=== PATIENT | female | born 1955 | race Caucasian/White ===

== ENCOUNTER 2017-09-25 21:51 | Emergency (ER) | payer BC ==
[~2017-09-25] VITALS: Ht 152.4 cm; Wt 87.1 kg
[~2017-09-25 21:51] MED LIST: ARMOUR THYROID90 M1 PO; ASPIR 8181 MG PO; ASPIRIN EC81 M1 PO; BENICAR20 MG PO; BENTYL10 MG PO; CIPRO250 M1; CLONIDINE HCL0.2 M2 PO; COZAAR 50 MG TA50 M2 PO; COZAAR 50 MG TA50 MG PO; GLUCOPHAGE500 MG PO; HYDROCODON-ACE1 EAC7; HYDROCODONE-AP1 EAC6 PO; LEXAPRO20 MG PO; MECLIZINE HCL25 M1 PO; PAXIL10 MG; POTASSIUM CIT-473 ML PO; SIMVASTATIN40 MG PO; SYNTHROID88 MCG PO
[2017-09-25 22:20] LABS: ABSOLUTE EOSINOPHILS 0.1 thou/uL (0.0-0.7); ABSOLUTE LYMPHOCYTES 1.7 thou/uL (0.8-5.3); ABSOLUTE MONOCYTES 0.6 thou/uL (0.0-1.2); BASOPHILS 0.4 %; HEMATOCRIT 41.3 % (37.0-47.0); HEMOGLOBIN 13.9 gm/dL (12.0-15.0); LYMPHOCYTES 20.3 %; MCH 30.7 pg (26.0-34.0); MCHC 33.7 g/dL (28.0-37.0); MCV 91.1 fL (80.0-100.0); MONOCYTES 7.1 %; MPV 8.6 fl. (7.2-11.1); NUCLEATED RBCS 0 /100WBC; PLATELET COUNT* 231 thou/uL (150-400); POLYS 71.2 %; RBC 4.54 mil/uL (4.20-5.00); RDW-CV 13.3 % (10.5-14.5); WBC 8.4 thou/uL (4.0-11.0)
[2017-09-25 22:20] LABS: URINE BILIRUBIN NEGATIVE (Negative); URINE BLOOD TRACE (Negative); URINE CLARITY CLEAR; URINE COLOR YELLOW; URINE GLUCOSE-RANDOM NEGATIVE (Negative); URINE KETONES NEGATIVE (Negative); URINE LEUKOCYTES-REFLEX NEGATIVE (Negative); URINE NITRITE-REFLEX NEGATIVE (Negative); URINE PROTEIN NEGATIVE (Negative); URINE SPECIFIC GRAVITY >= 1.030 (1.005-1.030); URINE UROBILINOGEN 0.2 E.U./dl (0.2-1.0)
[2017-09-25 22:25] LABS: CALCIUM 9.2 mg/dL (8.5-10.1); CREATININE 1.5 mg/dL (0.6-1.3); POTASSIUM 3.7 mmol/L (3.5-5.1)
[2017-09-25 22:29] LABS: ALBUMIN 3.8 g/dL (3.4-5.0); TOTAL BILIRUBIN 0.4 mg/dL (<0.1-1.0); TOTAL PROTEIN 8.2 g/dL (6.4-8.2)
[2017-09-25] MEDS ORDERED: PROMETHAZINE12.5 M1 PO (23:49)
[2017-09-25] MEDS ORDERED: NORCO 5-325 TA1 EACH PO (23:49)
[2017-09-26 00:04] VITALS: BP 135/70
[2017-09-28] MEDS ORDERED: ARMOUR THYROID60 M1 PO (09:00)
[2017-09-28] MEDS ORDERED: VIRTRATE-K ORA473 ML PO (09:00)
[2017-09-30] MEDS ORDERED: NORCO 5-325 TA1 EACH PO (11:18)
== END 2017-09-26 00:05 | disposition home or self-care (01) ==
LOC: M.ERS 21:51
PROVIDERS: Nurse Practitioner Family
DX: N20.1 Calculus of ureter (principal); R11.2 Nausea with vomiting, unspecified; E78.00 Pure hypercholesterolemia, unspecified; E03.9 Hypothyroidism, unspecified; E11.9 Type 2 diabetes mellitus without complications; I10 Essential (primary) hypertension; F32.9 Major depressive disorder, single episode, unspecified; Z88.7 Allergy status to serum and vaccine; Z88.8 Allergy status to other drugs, medicaments and biological substances; Z85.528 Personal history of other malignant neoplasm of kidney

== ENCOUNTER → 2017-09-30 | Day surgery (SDC) | payer BC ==
[~2017-09-30] MED LIST changes: +ARMOUR THYROID60 M1 PO; +NORCO 5-325 TA1 EACH PO; +PROMETHAZINE12.5 M1 PO; +VIRTRATE-K ORA473 ML PO
[2017-09-30 08:45] LABS: CALCIUM 9.2 mg/dL (8.5-10.1); CREATININE 1.1 mg/dL (0.6-1.3); POTASSIUM 3.9 mmol/L (3.5-5.1)
[2017-09-30 08:58] LABS: ALBUMIN 3.6 g/dL (3.4-5.0); TOTAL BILIRUBIN 0.3 mg/dL (<0.1-1.0); TOTAL PROTEIN 7.7 g/dL (6.4-8.2)
--- NOTE | 2017-09-30 15:15 | EKG ---
[place] [address] ELECTROCARDIOGRAM REPORT Name: CITLALY PIEDRA Room: [facility]#: [id number] Admission: 09/30/17 Attend Phys: Erwin Gagnon MD Discharge: Date of : 57 Report #: [id number] THIS REPORT FOR: //name// [facility] Test Date: 2017-09-30 Test Time: 08:45:23 Pat Name: CITLALY PIEDRA Department: Room: Gender: F Senior Service Aide: : 1955 Requested By: Erwin Gagnon Order Number: [id number] MD: Erwin Rodriguez Measurements Intervals [place] Rate: 49 P: 26 NE: 162 QRS: -21 QRSD: 83 T: 51 QT: 477 QTc: 431 Interpretive Statements Sinus bradycardia Left ventricular hypertrophy Compared to ECG 05/17/2014 03:55:49 No significant changes Electronically Signed On 09-30-2017 15:15:22 CDT by Erwin Rodriguez [email or web address] <ELECTRONICALLY SIGNED> By: Erwin Rodriguez MD, [facility] 09/30/17 1515 0845 0845 Erwin Rodriguez MD, FACC /EPI
--- NOTE | 2017-11-05 12:08 | OP ---
[address] [address] OPERATIVE REPORT Name: CITLALY PIEDRA Room: [facility]#: [id number] Admission: 09/30/17 Attend Phys: Erwin Gagnon MD Discharge: Date of : 57 Report #: [id number] THIS REPORT FOR: //name// CC: Erwin Kwan DATE OF SERVICE: 09/30/2017 INDICATION FOR PROCEDURE: The patient is a 62-year-old female who is a patient of Dr. Timo Thomas'fredi with a known kidney stones. He recently saw her in the office following an ER visit diagnosing a 7-mm left ureteropelvic junction calculus. She also has bilateral renal stones. She presents today for a left ureteroscopic stone extraction with holmium laser lithotripsy. PREOPERATIVE DIAGNOSIS: Left ureteral and renal calculi. POSTOPERATIVE DIAGNOSIS: Left ureteral and renal calculi. PROCEDURE: Cystoscopy, left retrograde pyelogram, left ureteroscopic stone extraction using holmium laser lithotripsy, left double-J stent placement. SURGEON: Erwin Gagnon M.D. ANESTHESIA: General. COMPLICATIONS: None. ESTIMATED BLOOD LOSS: Minimal. DESCRIPTION OF PROCEDURE: The patient was consented for the above procedure. She was given broad spectrum IV antibiotics preoperatively. She was given general anesthetic, placed in the dorsal lithotomy position. She was prepped and draped in a usual sterile fashion over the genitalia. Stones were poorly visualized on fluoroscopy. Cystoscopy was performed with a 21-Canadian sheath and 30-degree lens, which revealed no evidence of stones, ulcerations or tumors within the bladder itself. A left retrograde pyelogram was performed, which revealed a filling defect at the UPJ as well as in the middle and lower pole calices of the kidney. Based on that, a 0.035 floppy-tipped guidewire was passed up the left ureter under fluoroscopic guidance without difficulty. Next, the cystoscope was removed. The 11/ Canadian 28-cm ureteral access sheath was passed over the wire under fluoroscopic guidance up the mid ureter without difficulty. Next, the wire and trocar were removed leaving the sheath in place. The flexible ureteroscope was used to perform ureteroscopy without difficulty. This UPJ stone was pushed back into a middle pole oscar and then fragmented into a passable size pieces. She had multiple stones. She had a large renal pelvic stone and minimal on lower pole calices. These stones [place] [address] OPERATIVE REPORT Name: CITLALY PIEDRA Room: [facility]#: [id number] Admission: 09/30/17 Attend Phys: Erwin Gagnon MD Discharge: Date of : 57 Report #: [id number] difficult to fragment with the laser as they were hard to trap, but to the best of my ability I trapped the middle pole calyceal stones in the middle pole oscar and fragmented them into passable size pieces and then the same with the lower pole stones. There were some angle issues, I am not completely convinced that the lower pole stones were completely fragmented into passable size pieces, but everything that I could get to was fragmented. After breaking up everything that I could get access to, I elected to halt the procedure. The ureteroscope was removed. The wire was replaced under fluoroscopic guidance. The access sheath was then removed and a 4.8 x 26 double-J stent was passed over the wire with good curl noted in the renal pelvis and the bladder. This was confirmed with fluoroscopy and cystoscopy. The bladder was drained. The scope was removed. Uro-Jet was placed per urethra for local anesthesia. I will have the patient follow up with Dr. Thomas in a week for imaging to see if further stone therapy is necessary or stent removal is possible. Certainly, ESWL of the lower pole of the kidney with contrast would be a consideration as well because I pushed most fragments down into the lower pole of the kidney. <ELECTRONICALLY SIGNED> By: Erwin Gagnon MD 11/05/17 1208 1054 [id number] Gagnon MD /nt
== END | disposition home or self-care (01) ==
LOC: M.SUR 07:15
PROVIDERS: Urology
DX: N20.2 Calculus of kidney with calculus of ureter (principal); Z98.890 Other specified postprocedural states; Z79.899 Other long term (current) drug therapy; Z88.8 Allergy status to other drugs, medicaments and biological substances; Z79.891 Long term (current) use of opiate analgesic

== ENCOUNTER 2019-12-27 10:38 | Inpatient (IN) | payer BC ==
[~2019-12-27] VITALS: Ht 152.4 cm; Wt 89.4 kg
[2019-12-27 10:41] VITALS: BP 103/75
[2019-12-27] MEDS ORDERED: METFORMIN HCL500 M3 PO (10:45)
[2019-12-27 11:12] LABS: ABSOLUTE LYMPHOCYTES 0.7 thou/uL (0.8-5.3); ABSOLUTE MONOCYTES 0.6 thou/uL (0.0-1.2); ABSOLUTE NEUTROPHILS 6.5 thou/uL (1.6-8.1); BASOPHILS 0.3 %; EOSINOPHILS 0.5 %; HEMOGLOBIN 12.9 gm/dL (12.0-15.0); MCH 29.8 pg (26.0-34.0); MCHC 33.8 g/dL (28.0-37.0); MCV 88.2 fL (80.0-100.0); MONOCYTES 7.8 %; MPV 8.6 fl. (7.2-11.1); NUCLEATED RBCS 0 /100WBC; PLATELET COUNT* 236 thou/uL (150-400); POLYS 82.4 %; RBC 4.31 mil/uL (4.20-5.00); WBC 7.9 thou/uL (4.0-11.0)
[2019-12-27 11:22] LABS: CALCIUM 8.8 mg/dL (8.5-10.1); CREATININE 1.5 mg/dL (0.6-1.3); POTASSIUM 3.4 mmol/L (3.5-5.1)
[2019-12-27 11:26] LABS: APTT 26.2 Seconds (25.0-31.3); PROTIME 10.9 Seconds (9.20-11.50)
[2019-12-27 11:33] LABS: ALBUMIN 3.1 g/dL (3.4-5.0); TOTAL BILIRUBIN 0.7 mg/dL (<0.1-1.0); TOTAL PROTEIN 8.3 g/dL (6.4-8.2)
--- NOTE | 2019-12-27 11:51 | NUR ---
IV ACCESS ATTEMPTED 2, WITHOUT SUCCESS. PHYSICIAN TOLD, AND STATED IT WAS NOT NEEDED.
[2019-12-27] MEDS ORDERED: ZPAK PO (12:27)
[2019-12-27] MEDS ORDERED: PREDNISONE 20 M20 M1 PO (12:27)
[2019-12-27] MEDS ORDERED: ZOFRAN ODT4 MG SUBLING (12:27)
[2019-12-27 17:00] VITALS: BP 155/59
[2019-12-27 20:30] VITALS: BP 115/49
[2019-12-28] VITALS: BP 108/54
[2019-12-28 05:56] LABS: HEMATOCRIT 35.1 % (37.0-47.0); HEMOGLOBIN 11.6 gm/dL (12.0-15.0); MCH 29.6 pg (26.0-34.0); MCHC 33.1 g/dL (28.0-37.0); MCV 89.5 fL (80.0-100.0); MPV 8.8 fl. (7.2-11.1); RBC 3.92 mil/uL (4.20-5.00); WBC 4.1 thou/uL (4.0-11.0)
[2019-12-28 06:14] LABS: ALBUMIN 2.5 g/dL (3.4-5.0); CREATININE 1.1 mg/dL (0.6-1.3); MAGNESIUM 2.5 mg/dL (1.8-2.4); POTASSIUM 3.8 mmol/L (3.5-5.1); TOTAL BILIRUBIN 0.3 mg/dL (<0.1-1.0); TOTAL PROTEIN 7.3 g/dL (6.4-8.2)
[2019-12-28 08:00] VITALS: BP 125/60
--- NOTE | 2019-12-28 08:37 | NUR ---
RECEIVED PT FROM ED AT APPROX 2000. PT IS AWAKE AND ORIENTED X4. PT IS NOT IN DISTRESS. ORACLE SOA CONSULTANT IS TRACING SB/SR. PT DENIES PAIN. ADMISSION ASSESSMENT DONE AND CHARTED. NO ACUTE CHANGES THIS SHIFT. CALL LIGHT WITHIN REACH. HOURLY ROUNDING DONE FOR PT SAFETY.
--- NOTE | 2019-12-28 10:57 | EKG ---
[place] [address] ELECTROCARDIOGRAM REPORT Name: CITLALY PIEDRA Room: [address] ADM IN .R.#: [id number] Admission: 12/27/19 Attend Phys: Dorys Sue, Discharge: Date of : 57 Date of Service: 12/27/19 1131 Report #: [id number] THIS REPORT FOR: //name// [facility] ED Test Date: 2019-12-27 Test Time: 11:31:07 Pat Name: CITLALY PIEDRA Department: Room: [facility] Gender: F Clinical Data Abstractor: CCD : 1955 Requested By: Osmani Eaton Order Number: [id number] MD: Erwin Rodriguez Measurements Intervals [place] Rate: 63 P: 15 VT: 142 QRS: -18 QRSD: 76 T: 11 QT: 522 QTc: 535 Interpretive Statements Sinus rhythm Left ventricular hypertrophy Prolonged QT interval Compared to ECG 09/30/2017 08:45:23 Prolonged QT interval now present Sinus bradycardia no longer present Electronically Signed On 12-28-2019 10:57:26 ENTOMOLOGY TEACHER by Erwin Rodriguez [email or web address] <ELECTRONICALLY SIGNED> By: Erwin Rodriguez MD, [facility] 12/28/19 1057 1131 1131 Erwin Rodriguez MD, [facility] /EPI
--- NOTE | 2019-12-28 11:22 | NUR ---
RECIEVED REPORT AROUND 0730. ASSUMED CARE. PT LYING IN BED. IV INTACT LEFT WRIST. HEART MONITOR ATTACHED. VS AND ASSESSMENT CHARTED. PT UP STAND BY ASSIST. NO PAIN THIS AM. MEDS PER MAR GIVEN THIS AM. CALL LIGHT WITHIN REACH. WILL CONTINUE TO MONITOR.
--- NOTE | 2019-12-28 12:57 | NUR ---
CM COMPLETED THE INITIAL ASSESSMENT TO DISCUSS D/C PLANNING. PT IS A&O. ACTIVE AND INDEPENDENT W/ADLS. PT IS AN OR NURSE, AND WORKED HH RN IN THE PAST. PT DENIES HX W/HH OR SNF. PT HAS 0 DMES. PT LIVES HOME W/. HAS FOUR CHILDRENA AND GOOD SUPPORT. PT STATED HER SPOUSE IS COVID POSITIVE, "BUT HE IS DOING BETTER THAN ME." INDICIATING HE DID NOT HAVE TO BE HOSPITALIZED. CM TO CONT TO FOLLOW, NO ANTICIPATED NEEDS AT THIS TIME.
[2019-12-28 13:33] VITALS: BP 131/68
--- NOTE | 2019-12-28 15:48 | NUR ---
RIGHT BASILIC VESSEL ACCESSED FOR 4 LITHUANIAN SINGLE LUMEN PICC. LINE PRE-TRIMMED TO 38CM AND ADVANCED TO THE ZERO JOSE J WITH NO RESISTANCE MET. UPPER ARM CIRCUMFERENCE ABOVE INSERTION SITE= 13". SHERLOCK MAGNET AND 3CG CONFIRMATION OF TIOP TERMINATION AT THE CAVOATRIAL JUNCTION APPRECIATED. GUIDEWIRE REMOVED, LINE FLUSHED AND INSERTION SITE DRESSED. REPORT GIVEN TO ANISA RAMIREZ.
[2019-12-28 17:39] VITALS: BP 138/70
--- NOTE | 2019-12-28 18:07 | NUR ---
PT UP IN CHAIR. MEDS PER APR. HOURLY ROUNDING PERFORMED. PICC INSERTED THIS SHIFT UPPER RIGHT ARM. SINGLE LUMEN. IV LEFT WRIST INTACT. HEART MONITOR ATTACHED. NO REPORTS OF PAIN THIS SHIFT. CALL LIGHT WITHIN REACH. WILL CONTINUE TO MONITOR.
[2019-12-28 20:00] VITALS: BP 119/51
[2019-12-28 23:53] VITALS: BP 128/56
[2019-12-29 04:18] VITALS: BP 139/63
--- NOTE | 2019-12-29 05:09 | NUR ---
ASSUMED PT CARE AT APPROX 1930. PT IS AWAKE AND ORIENTED X4. PT IS TRACING SR/SB ON THE LANDSCAPE CREW MEMBER. PT DENIES PAIN/DISCOMFORT. spO2 IS 88-90 ON 2L OF O2, INCREASED O2 SUPPORT TO 4L, spO2:92-93% ON 4L.PT IS SHORT OF BREATH WITH ACTIVITY. PT IS MONITORED. CALL LIGHT WITHIN REACH. HOURLY ROUNDING DONE FOR PT SAFETY.
[2019-12-29 05:12] LABS: MCH 29.6 pg (26.0-34.0); MCHC 33.3 g/dL (28.0-37.0); MCV 88.8 fL (80.0-100.0); RBC 3.72 mil/uL (4.20-5.00); RDW-CV 12.9 % (10.5-14.5); WBC 9.8 thou/uL (4.0-11.0)
[2019-12-29 05:39] LABS: ALBUMIN 2.5 g/dL (3.4-5.0); CALCIUM 8.6 mg/dL (8.5-10.1); MAGNESIUM 2.3 mg/dL (1.8-2.4); POTASSIUM 3.7 mmol/L (3.5-5.1); TOTAL BILIRUBIN 0.3 mg/dL (<0.1-1.0); TOTAL PROTEIN 6.8 g/dL (6.4-8.2)
[2019-12-29 08:00] VITALS: BP 135/63
--- NOTE | 2019-12-29 10:09 | NUR ---
RECIEVED REPORT AROUND 0715. ASSUMED CARE. VS AND ASSESSMENT CHARTED. PT LYING IN BED DURING ASSESSMENT. PT UP IN CHAIR CURRENTLY. HEART MONITOR ATTACHED AT SB. MEDS GIVEN PER APR. PT ON 4L NC. IV'S INTACT. CALL LIGHT WITHIN REACH. WILL CONTINUE TO MONITOR.
[2019-12-29 16:00] VITALS: BP 134/61
--- NOTE | 2019-12-29 18:29 | NUR ---
NO NEW CHANGES. IV INTACT UPPER ARM. LEFT WRIST IV TAKEN OUT. PT STATED "IT STINGS" WHEN FLUSHED. PT LYING IN BED. UA NOT COLLECTED THIS SHIFT DUE TO PT NOT BEING ABLE TO MAKE IT TO THE BATHROOM IN TIME. MEDS GIVEN PER MAR. HOURLY ROUNDING PERFORMED. HEART MONITOR ATTACHED. CALL LIGHT WIHTIN REACH. WILL CONTINUE TO MONITOR.
[2019-12-29 20:00] VITALS: BP 145/52
[2019-12-29 21:05] LABS: URINE BILIRUBIN NEGATIVE (Negative); URINE BLOOD TRACE (Negative); URINE CLARITY CLEAR; URINE COLOR YELLOW; URINE GLUCOSE-RANDOM NEGATIVE (Negative); URINE KETONES NEGATIVE (Negative); URINE LEUKOCYTES-REFLEX NEGATIVE (Negative); URINE NITRITE-REFLEX NEGATIVE (Negative); URINE PROTEIN NEGATIVE (Negative); URINE UROBILINOGEN 0.2 E.U./dl (0.2-1.0)
[2019-12-30] VITALS: BP 128/53
[2019-12-30 04:00] VITALS: BP 123/49
[2019-12-30 07:07] LABS: HEMATOCRIT 31.3 % (37.0-47.0); HEMOGLOBIN 10.5 gm/dL (12.0-15.0); MCH 29.8 pg (26.0-34.0); MCHC 33.6 g/dL (28.0-37.0); MCV 88.5 fL (80.0-100.0); MPV 8.7 fl. (7.2-11.1); RBC 3.54 mil/uL (4.20-5.00); RDW-CV 12.8 % (10.5-14.5); WBC 8.7 thou/uL (4.0-11.0)
[2019-12-30 07:53] LABS: ALBUMIN 2.6 g/dL (3.4-5.0); CALCIUM 8.7 mg/dL (8.5-10.1); CREATININE 0.9 mg/dL (0.6-1.3); MAGNESIUM 2.2 mg/dL (1.8-2.4); POTASSIUM 3.7 mmol/L (3.5-5.1); TOTAL BILIRUBIN 0.3 mg/dL (<0.1-1.0); TOTAL PROTEIN 6.6 g/dL (6.4-8.2)
--- NOTE | 2019-12-30 07:55 | NUR ---
ASSUMED PT CARE AT APPROX 1930. PT IS AWAKE AND ORIENTED X4. PT IS NOT IN DISTRESS. PT IS SB ON THE MONITOR BUT IS ASYMPTOMATIC. PT DENIES PAIN. STATED SHE'S ABLE TO TASTE FOOD AGAIN AND SENSE OF SMELL IS STARTING TO COME BACK. O2 SUPPORT DECREASED TO 2L THIS SHIFT, spO2 REMAINED BETWEEN 94-97%.
[2019-12-30 08:00] VITALS: BP 113/62
--- NOTE | 2019-12-30 09:27 | NUR ---
RECIEVED REPORT AROUND. 0715. ASSUMED CARE. VS AND ASSESSMENT CHARTED. PT LYING IN BED THIS AM. UP TO BATHRROM. IV INTACT. PICC UPPER ARM. HEART MONITOR ATTACHED AT SB. MEDS GIVEN THIS AM PER APR. 2L NC. NO REPORTS OF PAIN THIS AM. CALL LIGHT WITHIN REACH. WILL CONTINUE TO MONITOR.
[2019-12-30 12:00] VITALS: BP 141/88
[2019-12-30 16:00] VITALS: BP 148/55
--- NOTE | 2019-12-30 18:21 | NUR ---
NO NEW CHANGES. PT LYING IN BED. IV INTACT. PICC. HEART MONITOR ATTACHED SB. MEDS PER APR. HOURLY ROUNDING PERFORMED. NO REPORTS OF PAIN THIS SHIFT. CALL LIGHT WITHIN REACH. WILL CONTINUE TO MONITOR
[2019-12-30 21:30] VITALS: BP 134/56
[2019-12-31 00:50] VITALS: BP 136/52
--- NOTE | 2019-12-31 04:14 | NUR ---
ASSUMED CARE OF PT AT 1900. PT IS ALERT AND ORIENTED. VSS.PERRLA. NO COMPLAINTS OF PAIN. PT IS IN SINUS RYTHM ON THE TELEMETRY. PT IS RESTING COMFORTABLY IN BED. WILL CONTINUE TO MONITOR PT.
[2019-12-31 05:07] VITALS: BP 138/41
[2019-12-31 06:40] LABS: HEMATOCRIT 32.5 % (37.0-47.0); MCHC 33.8 g/dL (28.0-37.0); MCV 88.9 fL (80.0-100.0); MPV 8.5 fl. (7.2-11.1); RBC 3.65 mil/uL (4.20-5.00); RDW-CV 12.9 % (10.5-14.5); WBC 7.9 thou/uL (4.0-11.0)
[2019-12-31 07:07] LABS: ALBUMIN 2.6 g/dL (3.4-5.0); CALCIUM 8.4 mg/dL (8.5-10.1); CREATININE 0.9 mg/dL (0.6-1.3); MAGNESIUM 1.9 mg/dL (1.8-2.4); POTASSIUM 3.6 mmol/L (3.5-5.1); TOTAL BILIRUBIN 0.3 mg/dL (<0.1-1.0); TOTAL PROTEIN 6.5 g/dL (6.4-8.2)
[2019-12-31 08:10] VITALS: BP 145/70
[2019-12-31 12:00] VITALS: BP 142/58
--- NOTE | 2019-12-31 15:00 | NUR ---
CXR-NO CHANGE. O2 REQUIREMENTS DOWN TO 2L/NC. REMAINS ON IV AB X2 AND DEXAMETHASON. UP WITH ASSIT WITH WALKER. CONTINUES TO PLAN TO GO HOME AT DISCHARGE WITH HH IF NEEDED. CM WILL FOLLOW.
[2019-12-31 15:51] VITALS: BP 126/58
--- NOTE | 2019-12-31 18:15 | NUR ---
Pt remained A&O for the entire shift. Vital signs remained stable. Pt denies any pain. Respirations are even and unlabored. Pt remains on 2L O2. Pt Sinus Eligio on tele monitor. PICC line intact and working effectively. Pt up ad eri. Call light within reach. Will continue to monitor.
[2019-12-31 19:30] VITALS: BP 130/73
[2020-01-01] VITALS: BP 157/60
--- NOTE | 2020-01-01 02:44 | NUR ---
ASSUMED CARE OF PT AT 1900. PT IS ALERT AND ORIENTED. VSS. PERRLA. NO COMPLAINTS OF PAIN. PT IS IN SINUS RYTHM ON THE TELEMETRY. PT IS RESTING COMFORTABLY IN BED. RESPIRATIONS ARE EVEN AND NONLABORED. WILL CONTINUE TO MONITOR PT.
[2020-01-01 04:00] VITALS: BP 147/61
[2020-01-01 07:50] VITALS: BP 152/71
[2020-01-01] MEDS ORDERED: CEFDINIR300 MG PO (09:31)
[2020-01-01] MEDS ORDERED: DEXAMETHASONE1 MG PO (09:31)
[2020-01-01 09:34] VITALS: BP 152/71
--- NOTE | 2020-01-01 11:40 | NUR ---
PATIENT RECIEVED ORDERED ABX. PICC LINE DC'D FOR DISCHARGE. UP AD AFIA WITHOUT DIFFCULTY. RA SAT 93%, NO SOA NOTED. PATIENT VERBALIZES UNDERSTANDING OF PAPERWORK AND SCRIPTS SENT TO PREFFERED PHARMACY. PATIENT TAKEN OUT VIA WHEELCHAIR WITH ALL BELONGINGS.
== END 2020-01-01 11:30 | disposition home or self-care (01) | DRG 177 ==
LOC: M.ERS 10:38 → M.ORTHSURG 12:52 → M.TBA-ER 12:52 → M.ORTHSURG 22:15
PROVIDERS: Family Medicine; ADMIT Internal Medicine; ATTEND Internal Medicine
PROC: XW033E5 Introduction of Remdesivir Anti-infective into Peripheral Vein, Percutaneous Approach, New Technology Group 5 (ICD-10-PCS; principal; 2019-12-27)
PROC: B548ZZA Ultrasonography of Superior Vena Cava, Guidance (ICD-10-PCS; 2019-12-28)
PROC: 02HV33Z Insertion of Infusion Device into Superior Vena Cava, Percutaneous Approach (ICD-10-PCS; 2019-12-28)
DX: U07.1 COVID-19 (principal); J12.89 Other viral pneumonia; J96.01 Acute respiratory failure with hypoxia; N17.0 Acute kidney failure with tubular necrosis; F32.9 Major depressive disorder, single episode, unspecified; E78.5 Hyperlipidemia, unspecified; E03.9 Hypothyroidism, unspecified; I10 Essential (primary) hypertension; E11.9 Type 2 diabetes mellitus without complications; E78.00 Pure hypercholesterolemia, unspecified; Z85.528 Personal history of other malignant neoplasm of kidney; Z90.49 Acquired absence of other specified parts of digestive tract; Z79.84 Long term (current) use of oral hypoglycemic drugs; Z79.899 Other long term (current) drug therapy; Z88.8 Allergy status to other drugs, medicaments and biological substances; Z88.7 Allergy status to serum and vaccine

== ENCOUNTER → 2020-10-17 | Outpatient (CLI) | payer BC ==
[~2020-10-17] MED LIST changes: +CEFDINIR300 MG PO; +DEXAMETHASONE1 MG PO; +METFORMIN HCL500 M3 PO; +PREDNISONE 20 M20 M1 PO; +ZOFRAN ODT4 MG SUBLING; +ZPAK PO
== END ==
LOC: M.ULTRA 15:00
PROVIDERS: ATTEND Family Medicine
DX: M79.89 Other specified soft tissue disorders (principal)

== ENCOUNTER → 2021-01-21 | Outpatient (CLI) | payer BC ==
--- NOTE | 2021-01-21 14:04 | 2DMMODE ---
[place] [address] 2 D/M-MODE ECHOCARDIOGRAM Name: CITLALY PIEDRA Room: [facility]#: [id number] Admission: 01/21/21 Attend Phys: Barry Xiao DO Discharge: Date of : 57 Date of Service: 01/21/21 1403 Report #: [id number] THIS REPORT FOR: cc: Baryr Xiao Adam J DO Holkins,Gustavo Luz MD [facility] ~ APPROVED REPORT Study performed: 01/21/2021 11:14:13 EXAM: Comprehensive 2D, Doppler, and color-flow Echocardiogram Patient Location: Out-Patient BSA: 1.83 HR: 62 bpm BP: 140/80 mmHg Other Information Study Quality: Good Indications Murmur 2D Dimensions IVSd: 11.25 (7-11mm) LVOT Diam: 19.52 (18-24mm) LVDd: 41.11 mm PWd: 10.89 (7-11mm) Ascending Ao: 30.86 (22-36mm) LVDs: 27.45 (25-40mm) Aortic Root: 26.10 mm Volumes Left Atrial Volume (Systole) LA ESV Index: 16.50 mL/m2 Aortic Valve AoV Peak Daren.: 1.73 m/s AO Peak Gr.: 11.96 mmHg LVOT Max P.96 mmHg AO Mean Gr.: 6.20 mmHg LVOT Mean P.66 mmHg LVOT Max V: 0.99 m/s AO V2 VTI: 34.77 cm LVOT Mean V: 0.58 m/s DACIA (VTI): 2.04 cm2 LVOT V1 VTI: 23.73 cm Mitral Valve E/A Ratio: 0.72 [place] [address] 2 D/M-MODE ECHOCARDIOGRAM Name: NARAANYICITLALY Room: [facility]#: [id number] Admission: 01/21/21 Attend Phys: Barry Xiao DO Discharge: Date of : 57 Date of Service: 01/21/21 1403 Report #: [id number] MV Decel. Time: 223.77 ms MV E Max Daren.: 0.60 m/s MV PHT: 64.89 ms MVA (PHT): 3.39 cm2 TDI E/Lateral E': 7.50 E/Medial E': 8.57 Medial E' Daren.: 0.07 m/s Lateral E' Daren.: 0.08 m/s Pulmonary Valve PV Peak Daren.: 0.90 m/s PV Peak Gr.: 3.23 mmHg Tricuspid Valve RAP Estimate: 5.00 mmHg TR Peak Gr.: 18.09 mmHg RVSP: 23.09 mmHg PA Pressure: 23.09 mmHg Left Ventricle The left ventricle is normal size. There is normal LV segmental wall motion. There is normal left ventricular wall thickness. Left ventricular systolic function is normal. The left ventricular ejection fraction is within the normal range. LVEF is 55-60%. Grade I - abnormal relaxation pattern. Right Ventricle The right ventricle is normal size. The right ventricular systolic function is normal. Atria The left atrium size is normal. The right atrium size is normal. Aortic Valve Mild aortic valve sclerosis. No aortic regurgitation is present. There is no aortic valvular stenosis. Mitral Valve The mitral valve is normal in structure. There is no mitral valve regurgitation noted. No evidence of mitral valve stenosis. Tricuspid Valve The tricuspid valve is normal in structure. Mild tricuspid regurgitation[place] [address] 2 D/M-MODE ECHOCARDIOGRAM Name: CITLALY PIEDRA Room: [facility]#: [id number] Admission: 01/21/21 Attend Phys: Barry Xiao DO Discharge: Date of : 57 Date of Service: 01/21/21 1403 Report #: [id number] The pulmonary valve is normal in structure. Mild pulmonic regurgitation. Great Vessels The aortic root is normal in size. IVC is normal in size and collapses >50% with inspiration. Pericardium There is no pericardial effusion. <Conclusion> There is normal left ventricular wall thickness. Left ventricular systolic function is normal. The left ventricular ejection fraction is within the normal range. LVEF is 55-60%. Grade I - abnormal relaxation pattern. The right ventricle is normal size. The left atrium size is normal. Mild aortic valve sclerosis. There is no aortic valvular stenosis. The mitral valve is normal in structure. The tricuspid valve is normal in structure. Mild tricuspid regurgitation. IVC is normal in size and collapses >50% with inspiration. There is no pericardial effusion. There is normal LV segmental wall motion. <ELECTRONICALLY SIGNED> By: Gustavo Lowry MD, FACC 01/21/21 1403 1403 1403 Gustavo Lowry MD, FACC /INF
== END ==
LOC: M.CRD 09:58
PROVIDERS: ATTEND Family Medicine
DX: I08.8 Other rheumatic multiple valve diseases (principal); R01.1 Cardiac murmur, unspecified

== ENCOUNTER 2021-04-07 18:39 | Emergency (ER) | payer BC ==
[~2021-04-07] VITALS: Ht 152.4 cm; Wt 87.5 kg
[2021-04-07 19:14] LABS: ABSOLUTE EOSINOPHILS 0.1 thou/uL (0.0-0.7); ABSOLUTE LYMPHOCYTES 1.9 thou/uL (0.8-5.3); ABSOLUTE MONOCYTES 0.9 thou/uL (0.0-1.2); ABSOLUTE NEUTROPHILS 9.5 thou/uL (1.6-8.1); BASOPHILS 0.3 %; EOSINOPHILS 0.9 %; HEMATOCRIT 44.1 % (37.0-47.0); HEMOGLOBIN 14.5 gm/dL (12.0-15.0); LYMPHOCYTES 15.6 %; MCH 29.6 pg (26.0-34.0); MCHC 32.8 g/dL (28.0-37.0); MCV 90.2 fL (80.0-100.0); MONOCYTES 7.2 %; MPV 8.4 fl. (7.2-11.1); NUCLEATED RBCS 0 /100WBC; PLATELET COUNT* 266 thou/uL (150-400); RBC 4.88 mil/uL (4.20-5.00); RDW-CV 12.8 % (10.5-14.5); WBC 12.5 thou/uL (4.0-11.0)
[2021-04-07 19:20] LABS: CALCIUM 9.6 mg/dL (8.5-10.1); CREATININE 1.3 mg/dL (0.6-1.3); POTASSIUM 3.7 mmol/L (3.5-5.1)
[2021-04-07 19:24] LABS: ALBUMIN 4.1 g/dL (3.4-5.0); TOTAL BILIRUBIN 0.4 mg/dL (<0.1-1.0); TOTAL PROTEIN 8.3 g/dL (6.4-8.2)
[2021-04-07 20:48] LABS: URINE BILIRUBIN NEGATIVE (Negative); URINE BLOOD 3+ (Negative); URINE CLARITY CLEAR; URINE COLOR YELLOW; URINE GLUCOSE-RANDOM 2+ (Negative); URINE KETONES NEGATIVE (Negative); URINE LEUKOCYTES-REFLEX NEGATIVE (Negative); URINE NITRITE-REFLEX NEGATIVE (Negative); URINE PROTEIN NEGATIVE (Negative); URINE SPECIFIC GRAVITY 1.015 (1.005-1.030); URINE UROBILINOGEN 0.2 E.U./dl (0.2-1.0)
[2021-04-07 21:01] LABS: CASTS None Seen /LPF (None Seen); SQUAMOUS 0-3 Few /LPF (0-3)
[2021-04-07 21:02] LABS: BACTERIA-REFLEX 1-9 Few /HPF (None Seen); CRYSTALS None Seen /LPF (None Seen); URINE RBC >20 Many /HPF (0-2); URINE WBC-REFLEX 0-5 Rare /HPF (0-5)
[2021-04-07] MEDS ORDERED: HYDROCODON-ACE1 EAC8 PO (21:07)
[2021-04-07] MEDS ORDERED: ZOFRAN ODT4 MG PO (21:07)
[2021-04-07] MEDS ORDERED: FLOMAX0.4 MG PO (21:11)
[2021-04-07 21:23] VITALS: BP 194/71
--- NOTE | 2021-04-08 10:00 | EKG ---
[place] [address] ELECTROCARDIOGRAM REPORT Name: PATO PIEDRANessa Room: [facility]#: [id number] Admission: 04/07/21 Attend Phys: Discharge: 04/07/21 Date of : 57 Date of Service: 04/07/211911 Report #: [id number] THIS REPORT FOR: //name// [facility] ED Test Date: 2021-04-07 Test Time: 19:12:25 Pat Name: CITLALY PIEDRA Department: Room: Gender: Manager Telecom: : 1955 Requested By: Delon Bartholomew Order Number: [id number] MD: Erwin Rodriguez Measurements Intervals [place] Rate: 60 P: 58 AR: 141 QRS: -3 QRSD: 77 T: 47 QT: 407 QTc: 407 Interpretive Statements Sinus rhythm Compared to ECG 12/27/2019 11:31:07 Left ventricular hypertrophy no longer present Prolonged QT interval no longer present Electronically Signed On 04-08-2021 10:00:43 AMMONIA TECHNICIAN by Erwin Rodriguez [email or web address] <ELECTRONICALLY SIGNED> By: Erwin Rodriguez MD, FACC 04/08/21 1000 11 11 Erwin Rodriguez MD, FAC /EPI
== END 2021-04-07 21:23 | disposition home or self-care (01) ==
LOC: M.ERS 18:39
PROVIDERS: Physician Assistant Medical
DX: N13.2 Hydronephrosis with renal and ureteral calculous obstruction (principal); E11.9 Type 2 diabetes mellitus without complications; I10 Essential (primary) hypertension; F32.9 Major depressive disorder, single episode, unspecified; E78.00 Pure hypercholesterolemia, unspecified; E03.9 Hypothyroidism, unspecified; Z87.442 Personal history of urinary calculi; Z79.2 Long term (current) use of antibiotics; Z79.899 Other long term (current) drug therapy; Z91.048 Other nonmedicinal substance allergy status; Z88.8 Allergy status to other drugs, medicaments and biological substances; Z88.7 Allergy status to serum and vaccine